=== PATIENT | male | born 1975 | race Caucasian/White ===

== ENCOUNTER 2017-06-24 14:27 | Emergency (ER) | payer OTHER ==
[~2017-06-24] VITALS: Ht 190.5 cm; Wt 136.1 kg
[~2017-06-24 14:27] MED LIST: LISINOPRIL; NAPROXEN 375 M375 M1 PO
[2017-06-24] MEDS ORDERED: NAPROSYN500 MG PO (16:11)
[2017-06-24] MEDS ORDERED: CYCLOBENZAPRINE5 MG PO (16:11)
[2017-06-24] MEDS ORDERED: ACETAMINOPHEN-1 EAC1 PO (16:11)
[2017-06-24 16:35] VITALS: BP 140/94
== END 2017-06-24 16:36 | disposition home or self-care (01) ==
LOC: M.ERS 14:27
DX: M54.5 Low back pain (principal); E78.00 Pure hypercholesterolemia, unspecified; E11.9 Type 2 diabetes mellitus without complications; Z88.0 Allergy status to penicillin; W11.XXXA Fall on and from ladder, initial encounter; Y93.89 Activity, other specified; Y92.89 Other specified places as the place of occurrence of the external cause; Y99.8 Other external cause status

== ENCOUNTER 2017-10-14 06:27 | Emergency (ER) | payer OTHER ==
[~2017-10-14] VITALS: Ht 190.5 cm; Wt 124.7 kg
[~2017-10-14 06:27] MED LIST changes: +ACETAMINOPHEN-1 EAC1 PO; +CYCLOBENZAPRINE5 MG PO; +NAPROSYN500 MG PO
[2017-10-14] MEDS ORDERED: NORCO 5-325 TA1 EACH PO (07:25)
[2017-10-14] MEDS ORDERED: BACTRIM DS TAB1 EACH PO (07:25)
[2017-10-14] MEDS ORDERED: KEFLEX500 M1 PO (07:25)
[2017-10-14 07:41] VITALS: BP 144/98
== END 2017-10-14 07:42 | disposition home or self-care (01) ==
LOC: M.ERS 06:27
DX: L03.113 Cellulitis of right upper limb (principal); E11.9 Type 2 diabetes mellitus without complications; E78.00 Pure hypercholesterolemia, unspecified; Z88.0 Allergy status to penicillin; Z88.6 Allergy status to analgesic agent

== ENCOUNTER 2019-02-13 12:39 | Emergency (ER) | payer OTHER ==
[~2019-02-13] VITALS: Ht 188 cm; Wt 156.0 kg
[~2019-02-13 12:39] MED LIST changes: +BACTRIM DS TAB1 EACH PO; +KEFLEX500 M1 PO; +NORCO 5-325 TA1 EACH PO
[2019-02-13] MEDS ORDERED: FUROSEMIDE 40 M40 MG PO (13:02)
[2019-02-13] MEDS ORDERED: CARVEDILOL12.5 MG PO (13:02)
[2019-02-13] MEDS ORDERED: KLOR-CON M2020 MEQ PO (13:03)
[2019-02-13] MEDS ORDERED: ZESTRIL10 MG PO (13:10)
[2019-02-13] MEDS ORDERED: GLUCOPHAGE1000 MG PO (13:10)
[2019-02-13 13:22] LABS: ABSOLUTE NEUTROPHILS 6.8 thou/uL (1.6-8.1); HEMOGLOBIN 14.3 gm/dL (14.0-18.0)
[2019-02-13 13:23] LABS: ABSOLUTE BASOPHILS 0.1 thou/uL (0.0-0.2); ABSOLUTE LYMPHOCYTES 2.4 thou/uL (0.8-5.3); BASOPHILS 0.9 %; EOSINOPHILS 0.5 %; HEMATOCRIT 46.1 % (42.0-52.0); LYMPHOCYTES 23.4 %; MCH 22.2 pg (26.0-34.0); MCHC 30.9 g/dL (28.0-37.0); MCV 71.7 fL (80.0-100.0); MONOCYTES 9.7 %; MPV 9.8 fl. (7.2-11.1); NUCLEATED RBCS 0 /100WBC; PLATELET COUNT* 278 thou/uL (150-400); POLYS 65.5 %; RBC 6.43 mil/uL (4.50-6.00); RDW-CV 18.6 % (10.5-14.5); WBC 10.4 thou/uL (4.0-11.0)
[2019-02-13 13:28] LABS: APTT 23.7 Seconds (25.0-31.3); INR 1.4; PROTIME 13.8 Seconds (9.20-11.50)
[2019-02-13 13:34] LABS: ALBUMIN 3.3 g/dL (3.4-5.0); ALKALINE PHOSPHATASE 144 U/L (46-116); ANION GAP 12 mmol/L (7-16); BUN 19 mg/dL (7-18); CALCIUM 9.2 mg/dL (8.5-10.1); CHLORIDE 100 mmol/L (98-107); CHOLESTEROL 82 mg/dL (<200); CO2 23 mmol/L (21-32); CREATININE 1.3 mg/dL (0.6-1.3); GLUCOSE 160 mg/dL (70-99); HDL CHOLESTEROL 18 mg/dL (>40); LDL CHOLESTEROL 53 mg/dL (<100); MAGNESIUM 1.8 mg/dL (1.8-2.4); POTASSIUM 4.5 mmol/L (3.5-5.1); SGOT 41 U/L (15-37); SGPT 23 U/L (30-65); SODIUM 135 mmol/L (136-145); TC:HDL 4.6 Ratio (Not establshd); TOTAL BILIRUBIN 2.2 mg/dL (<0.1-1.0); TRIGLYCERIDE 59 mg/dL (<150); VLDL 12 mg/dL (<40)
[2019-02-13 13:35] LABS: SERUM ASSESSMENT Clear
--- NOTE | 2019-02-13 14:19 | EKG ---
[place] [address] ELECTROCARDIOGRAM REPORT Name: RADHA MEYERS Room: [facility]#: [id number] Admission: 02/13/19 Attend Phys: Discharge: Date of : 79 Report #: [id number] THIS REPORT FOR: //name// [facility] ED Test Date: 2019-02-13 Test Time: 12:54:16 Pat Name: RADHA MEYERS Department: Room: Gender: Winch Operator: : 1975 Requested By: Jalen Pardo Order Number: [id number] : Christian Marin Measurements Intervals [place] Rate: 104 P: 48 NV: 163 QRS: 159 QRSD: 158 T: -8 QT: 407 QTc: 536 Interpretive Statements Sinus tachycardia Right bundle branch block No previous ECG available for comparison Electronically Signed On 02-13-2019 14:18:44 [employer] by Christian Marin [email or web address] <ELECTRONICALLY SIGNED> By: Christian Marin MD, [facility] 02/13/19 1418 1254 [id number] Christian Marin MD, FACC /EPI
[2019-02-13 15:09] LABS: AMP/METHAMP POSITIVE (Negative); BARBITURATES Negative (Negative); BENZODIAZEPINES Negative (Negative); COCAINE Negative (Negative); METHADONE Negative (Negative); OPIATES POSITIVE (Negative); PCP Negative (Negative); THC Negative (Negative)
[2019-02-13 15:55] VITALS: BP 121/98
== END 2019-02-13 15:56 | disposition home or self-care (01) ==
LOC: M.ERS 12:39
PROVIDERS: Emergency Medicine
DX: R07.9 Chest pain, unspecified (principal); F15.10 Other stimulant abuse, uncomplicated; R10.9 Unspecified abdominal pain; R60.0 Localized edema; E11.9 Type 2 diabetes mellitus without complications; Z88.0 Allergy status to penicillin; Z88.6 Allergy status to analgesic agent

== ENCOUNTER 2020-05-08 13:00 | Inpatient (IN) | payer MEDICAID ==
[~2020-05-08] VITALS: Ht 188 cm; Wt 131.5 kg
[~2020-05-08 13:00] MED LIST changes: +CARVEDILOL12.5 MG PO; +FUROSEMIDE 40 M40 MG PO; +GLUCOPHAGE1000 MG PO; +KLOR-CON M2020 MEQ PO; +ZESTRIL10 MG PO
[2020-05-08 13:13] VITALS: BP 165/105
[2020-05-08] MEDS ORDERED: TOPROL XL25 MG PO (13:17)
[2020-05-08] MEDS ORDERED: FLOMAX0.4 MG PO (13:17)
[2020-05-08] MEDS ORDERED: LIPITOR 20 MG T20 M1 PO (13:18)
[2020-05-08 13:59] LABS: ABSOLUTE BASOPHILS 0.1 thou/uL (0.0-0.2); ABSOLUTE EOSINOPHILS 0.1 thou/uL (0.0-0.7); ABSOLUTE LYMPHOCYTES 1.2 thou/uL (0.8-5.3); ABSOLUTE MONOCYTES 0.6 thou/uL (0.0-1.2); ABSOLUTE NEUTROPHILS 5.4 thou/uL (1.6-8.1); BASOPHILS 1.2 %; EOSINOPHILS 1.1 %; HEMATOCRIT 39.8 % (42.0-52.0); HEMOGLOBIN 13.3 gm/dL (14.0-18.0); LYMPHOCYTES 16.1 %; MCHC 33.4 g/dL (28.0-37.0); MCV 83.9 fL (80.0-100.0); MONOCYTES 8.5 %; MPV 8.9 fl. (7.2-11.1); NUCLEATED RBCS 0 /100WBC; PLATELET COUNT* 183 thou/uL (150-400); POLYS 73.1 %; RBC 4.75 mil/uL (4.50-6.00); RDW-CV 15.6 % (10.5-14.5); WBC 7.3 thou/uL (4.0-11.0)
[2020-05-08 14:07] LABS: CALCIUM 8.8 mg/dL (8.5-10.1); POTASSIUM 3.5 mmol/L (3.5-5.1)
[2020-05-08 14:11] LABS: ALBUMIN 3.4 g/dL (3.4-5.0); TOTAL BILIRUBIN 0.4 mg/dL (<0.1-1.0); TOTAL PROTEIN 7.9 g/dL (6.4-8.2); URIC ACID* 8.1 mg/dL (2.6-7.2)
[2020-05-08] MEDS ORDERED: HYDROCODON-ACE1 EAC7 PO ×3 (16:18→16:24)
[2020-05-08] MEDS ORDERED: PREDNISONE 20 M20 M1 PO ×3 (16:18→16:24)
[2020-05-08] MEDS ORDERED: KEFLEX500 M1 PO ×3 (16:18→16:24)
[2020-05-08 16:26] VITALS: BP 112/65
[2020-05-08 16:33] VITALS: BP 112/65
== END 2020-05-08 16:25 | disposition left against medical advice (07) | DRG 550 ==
LOC: M.ERS 13:00 → M.TBA-ER 15:38
PROVIDERS: Physician Assistant; ADMIT Internal Medicine; ATTEND Internal Medicine
DX: M00.9 Pyogenic arthritis, unspecified (principal); E11.9 Type 2 diabetes mellitus without complications; I50.9 Heart failure, unspecified; Z53.29 Procedure and treatment not carried out because of patient's decision for other reasons; Z88.0 Allergy status to penicillin; Z86.718 Personal history of other venous thrombosis and embolism; Z20.822 Contact with and (suspected) exposure to COVID-19